=== PATIENT | female | born 1990 | race Caucasian/White ===

== ENCOUNTER 2024-12-20 01:22 | Emergency (ER) | payer BC, OTHER ==
[2024-12-20] MEDS: Albuterol/Ipratropium 3.0-0.5 MG/3 ML Neb Soln NEB ONE (01:49)
[2024-12-20] MEDS: diphenhydrAMINE 25 MG Cap PO ONE (02:03)
[2024-12-20] MEDS: guaiFENesin 600 MG Tab.ER PO ONE (02:03)
[2024-12-20] MEDS: Benzonatate 100 MG Cap PO ONE (02:03)
== END 2024-12-20 03:18 | disposition home or self-care (01) ==
LOC: JD.ED 01:22
DX: O99.512 Diseases of the respiratory system complicating pregnancy, second trimester (principal); J06.9 Acute upper respiratory infection, unspecified; B97.89 Other viral agents as the cause of diseases classified elsewhere; Z79.899 Other long term (current) drug therapy; Z3A.21 21 weeks gestation of pregnancy
CPT/HCPCS: 71045; 71045-26; 94640; 99285; A9270-GY; J7620-GY

== ENCOUNTER 2025-04-22 06:48 | Inpatient (IN) | payer BC ==
[2025-04-22] MEDS ORDERED: Sodium Chloride 0.9% 10 ML Syringe FLUSH PRN (07:06)
[2025-04-22] MEDS ORDERED: Misoprostol 25 MCG (1/4 of 100 MCG) Tab VAG PRN (07:06)
[2025-04-22] MEDS ORDERED: Nalbuphine 10 MG/1 ML Vial IVPUSH PRN (07:06)
[2025-04-22] MEDS ORDERED: Oxytocin/0.9 % Sodium Chloride 30 UNIT/500 ML BAG IV SCH (07:15)
[2025-04-22 07:30] LABS: BASOPHILS ABSOLUTE AUTO 0.0 K/mm3 (0.0-0.2); BASOPHILS PERCENT AUTO 0.6 % (0.0-1.0); EOSINOPHILS ABSOLUTE AUTO 0.1 K/mm3 (0.0-0.4); EOSINOPHILS PERCENT AUTO 1.8 % (0.0-6.0); IMMATURE GRAN ABSOLUTE AUTO 0.04 K/mm3 (0.00-0.05); IMMATURE GRAN PERCENT AUTO 0.6 % (0.0-0.4); LYMPHOCYTES ABSOLUTE AUTO 1.7 K/mm3 (1.0-4.8); LYMPHOCYTES PERCENT AUTO 26.5 % (24.0-44.0); MEAN PLATELET VOLUME 10.0 fl (9.4-12.3); MONOCYTES ABSOLUTE AUTO 0.6 K/mm3 (0.0-0.8); MONOCYTES PERCENT AUTO 9.3 % (0.0-8.0); NEUTROPHILS ABSOLUTE AUTO 3.8 K/mm3 (1.8-7.7); NEUTROPHILS PERCENT AUTO 61.2 % (41.0-71.0); NRBC ABSOLUTE 0.00 (0.00-0.02); NRBC PERCENT 0.0 % (0.0-0.2); PLATELET COUNT,PLT 220 K/mm3 (150-400); RED BLOOD CELL COUNT 4.16 M/mm3 (4.10-5.30); WHITE BLOOD CELL COUNT,WBC 6.22 K/mm3 (3.9-11.3)
[2025-04-22] MEDS: Misoprostol 25 MCG (1/4 of 100 MCG) Tab VAG ONE (07:42)
[2025-04-22] MEDS: Sodium Chloride 0.9% 10 ML Syringe FLUSH SCH (10:15)
[2025-04-22] MEDS: Lactated Ringers 1,000 ML IV SCH (11:57)
[2025-04-22] MEDS: Oxytocin/0.9 % Sodium Chloride 30 UNIT/500 ML BAG IV SCH (11:57)
[2025-04-22] MEDS ORDERED: diphenhydrAMINE 50 MG/ML SDV IVPUSH PRN (18:01)
[2025-04-22] MEDS: fentaNYL 100 MCG/2 ML SDV EPIDUR PRN (18:12)
[2025-04-22] MEDS: Bupivacaine/fentaNYL/NS 100 ML Bag EPIDUR PRN (18:12)
[2025-04-22] MEDS: ePHEDrine 50 MG/ML SDV IVPUSH PRN (18:48)
[2025-04-22] MEDS: Ondansetron 4 MG/2 ML SDV IVPUSH PRN (19:46)
[2025-04-23] MEDS ORDERED: Sodium Chloride 0.9% 10 ML Syringe FLUSH PRN ×2 (06:35→09:13)
[2025-04-23] MEDS ORDERED: Lactated Ringers 1,000 ML IV SCH (06:45)
[2025-04-23] MEDS: Citric Acid/Sodium Citrate Solution 30 ML Cup PO ONE (06:48)
[2025-04-23] MEDS ORDERED: Ondansetron 4 MG/2 ML SDV ONE (06:52)
[2025-04-23] MEDS ORDERED: Ropivacaine 0.5% 5 MG/ML 30 ML SDV ONE (06:52)
[2025-04-23] MEDS ORDERED: fentaNYL 100 MCG/2 ML SDV ONE (06:52)
[2025-04-23] MEDS ORDERED: Ketorolac 30 MG/ML SDV ONE (06:52)
[2025-04-23] MEDS ORDERED: Morphine PF 10 MG/10 ML SDV ONE (06:52)
[2025-04-23] MEDS ORDERED: Oxytocin 10 Units/1 ML SDV ONE (06:52)
[2025-04-23] MEDS ORDERED: EPINEPHrine 1 MG/ML SDV ONE (07:45)
[2025-04-23] MEDS ORDERED: diphenhydrAMINE 50 MG/ML SDV IVPUSH PRN ×2 (08:10→09:13)
[2025-04-23] MEDS ORDERED: fentaNYL 100 MCG/2 ML SDV IVPUSH PRN (08:10)
[2025-04-23] MEDS ORDERED: Dexamethasone 4 MG/ML SDV ONE (08:48)
[2025-04-23] MEDS ORDERED: Sodium Chloride 0.9% 10 ML Syringe FLUSH SCH (09:00)
[2025-04-23] MEDS ORDERED: Ondansetron 4 MG/2 ML SDV IV PRN (09:13)
[2025-04-23] MEDS ORDERED: ePHEDrine 50 MG/ML SDV IVPUSH PRN (09:13)
[2025-04-23] MEDS ORDERED: Naloxone 0.4 MG/ML SDV IVPUSH PRN (09:13)
[2025-04-23] MEDS: Scopalamine 1mg/3day Transdermal Patch TOP ONE (10:25)
[2025-04-23] MEDS: Ondansetron 4 MG/2 ML SDV IVPUSH PRN (11:23)
[2025-04-23] MEDS: Ketorolac 30 MG/ML SDV IVPUSH SCH (14:05)
[2025-04-24 06:55] LABS: MEAN PLATELET VOLUME 10.4 fl (9.4-12.3); NRBC ABSOLUTE 0.00 (0.00-0.02); NRBC PERCENT 0.0 % (0.0-0.2); PLATELET COUNT,PLT 184 K/mm3 (150-400); RED BLOOD CELL COUNT 3.28 M/mm3 (4.10-5.30); WHITE BLOOD CELL COUNT,WBC 10.70 K/mm3 (3.9-11.3)
== END 2025-04-26 14:40 | disposition home or self-care (01) | DRG 540 ==
LOC: JD.OB 06:48 → OBSVTOIN 04-23 07:26 → JD.OB 04-23 07:27
PROVIDERS: ADMIT Obstetrics & Gynecology; ATTEND Obstetrics & Gynecology
PROC: 3E0R3BZ Introduction of Anesthetic Agent into Spinal Canal, Percutaneous Approach (ICD-10-PCS; principal; 2025-04-23 07:15)
PROC: 0U7C7DJ Dilation of Cervix with Intraluminal Device, Temporary, Via Natural or Artificial Opening (ICD-10-PCS; principal; 2025-04-23 07:15)
PROC: 30233S1 Transfusion of Nonautologous Globulin into Peripheral Vein, Percutaneous Approach (ICD-10-PCS; principal; 2025-04-23 07:15)
PROC: 10907ZC Drainage of Amniotic Fluid, Therapeutic from Products of Conception, Via Natural or Artificial Opening (ICD-10-PCS; principal; 2025-04-23 07:15)
PROC: 3E0DXGC Introduction of Other Therapeutic Substance into Mouth and Pharynx, External Approach (ICD-10-PCS; principal; 2025-04-23 07:15)
PROC: 10D00Z1 Extraction of Products of Conception, Low, Open Approach (ICD-10-PCS; principal; 2025-04-23 07:15)
PROC: 3E033VJ Introduction of Other Hormone into Peripheral Vein, Percutaneous Approach (ICD-10-PCS; principal; 2025-04-23 07:15)
DX: O80 Encounter for full-term uncomplicated delivery (principal); Z3A.39 39 weeks gestation of pregnancy; Z37.0 Single live birth; Z98.890 Other specified postprocedural states; Z79.899 Other long term (current) drug therapy
CPT/HCPCS: 01967; 36415; 51702; 59025; 85025; 85027; 85461; 86592; 86850; 86870; 86900; 86901; A9270-GY; C1726; J0171; J0456; J0665; J0690; J1100; J1885; J2003; J2210; J2274; J2405; J2590; J2765; J2791; J2795; J3010; J3490; J7050; J7120; J7121; J7999